=== PATIENT | female | born 1960 | race Caucasian/White ===

== ENCOUNTER → 2020-03-21 | Outpatient (CLI) | payer BC | LOC: MC.RAD 03-07 11:15 | DX: Z12.31 Encounter for screening mammogram for malignant neoplasm of breast (principal) ==

== ENCOUNTER 2021-02-20 13:45 | Outpatient (CLI) | payer BC ==
[2021-02-20] MEDS ORDERED: ADVIL200 MG PO (14:12)
[2021-02-20 14:30] VITALS: BP 109/75; PULSE 95
[2021-02-20 14:37] VITALS: BP 109/75; PULSE 73
[2021-02-20 14:45] VITALS: BP 131/82; PULSE 92
[2021-02-20 15:03] VITALS: BP 131/82; PULSE 92
--- NOTE | 2021-02-20 15:54 | NUR ---
Infusion completed,vitals obtained every 15 minutes throughout and post infusion.No signs of complication.Chest xray completed as ordered.Will continue to monitor.
[2021-02-20 16:00] VITALS: BP 133/81; PULSE 83
--- NOTE | 2021-02-20 16:43 | NUR ---
Pt escorted out by this nurse.
== END 2021-02-20 17:10 ==
LOC: COL.RAD 13:45
DX: R06.2 Wheezing (principal)
CPT/HCPCS: Q0244